=== PATIENT | female | born 1945 | race Caucasian/White ===

== ENCOUNTER 2018-07-31 12:33 | Outpatient (CLI) | payer MEDICARE ==
[~2018-07-31] VITALS: Ht 165.1 cm; Wt 72.6 kg
[~2018-07-31 12:33] MED LIST: ALLERGY SHOT; HYDR118S10 PO; METH25VI IJ; ONDA-42 SL; PROC10TA23 PO; PROM25SU10 PR; ROSU10TA12 PO; SULFASALAZINE PO; TRAZ-189 PO
[2018-07-31] MEDS ORDERED: DENOSUMAB 60 MG/1 ML (PROLIA) SQ SCH (12:45)
[2018-07-31 13:10] VITALS: BP 117/93
== END 2018-07-31 13:10 | disposition home or self-care (01) ==
LOC: SDC 12:33
PROVIDERS: ATTEND Family Medicine
DX: M81.0 Age-related osteoporosis without current pathological fracture (principal)
CPT/HCPCS: 96372

== ENCOUNTER → 2018-08-25 | Outpatient (CLI) | payer MEDICARE ==
--- NOTE | 2018-08-25 14:34 | Diagnostic Imaging Report ---
PROCEDURE: US left lower extremity venous. TECHNIQUE: Multiple real-time grayscale images were obtained over the left lower extremity in various projections. Additional duplex Doppler and color Doppler images were also obtained. Date: August 25, 2018. Indication: 73-year-old female, left leg swelling and pain. Comparison: None. Findings: The proximal and mid right superficial femoral veins are compressible. There is lack of compressibility of the distal right superficial femoral vein and right popliteal vein which contained echogenic material and no demonstrated blood flow compatible with sites of occlusive thrombus. Visualized portions of the right deep femoral vein are patent. Impression: 1. Occlusive thrombus in the right distal superficial femoral vein and popliteal vein. Dictated by: Dictated on workstation # [id number]
== END ==
LOC: RAD 13:09
PROVIDERS: ATTEND Family Medicine
DX: I82.411 Acute embolism and thrombosis of right femoral vein (principal); I82.431 Acute embolism and thrombosis of right popliteal vein

== ENCOUNTER → 2018-10-12 | Outpatient (RCR) | payer MEDICARE | END | disposition home or self-care (01) | PROVIDERS: ATTEND Family Medicine | DX: M54.2 Cervicalgia (principal); R51 Headache ==

== ENCOUNTER 2018-11-10 13:26 | Outpatient (RCR) | payer MEDICARE | END 2019-02-08 | disposition home or self-care (01) | LOC: ONC 13:26 | PROVIDERS: ATTEND Internal Medicine Hematology & Oncology | DX: I82.401 Acute embolism and thrombosis of unspecified deep veins of right lower extremity (principal); E78.5 Hyperlipidemia, unspecified; Z86.73 Personal history of transient ischemic attack (TIA), and cerebral infarction without residual deficits; Z79.01 Long term (current) use of anticoagulants; Z79.899 Other long term (current) drug therapy | CPT/HCPCS: 99214 ==

== ENCOUNTER → 2019-02-02 | Outpatient (CLI) | payer MEDICARE ==
[~2019-02-02] VITALS: Ht 165.1 cm; Wt 72.6 kg
[~2019-02-02] MED LIST changes: +DENOSUMAB 60 MG/1 ML (PROLIA) SQ NR
[2019-02-02 13:05] VITALS: BP 126/73
== END ==
LOC: SDC 01-29 12:30
PROVIDERS: ATTEND Family Medicine
DX: M81.0 Age-related osteoporosis without current pathological fracture (principal)
CPT/HCPCS: 96372

== ENCOUNTER → 2019-08-04 | Outpatient (CLI) | payer MEDICARE ==
[~2019-08-04] VITALS: Ht 167 cm; Wt 73.6 kg
[~2019-08-04] MED LIST changes: -DENOSUMAB 60 MG/1 ML (PROLIA) SQ NR; +DENOSUMAB 60 MG/1 ML (PROLIA) SQ ONE; -TRAZ-189 PO; +TRAZ-222 PO
[2019-08-04 12:50] VITALS: BP 139/74
== END ==
LOC: SDC 12:15
PROVIDERS: ATTEND Family Medicine
DX: M81.0 Age-related osteoporosis without current pathological fracture (principal)
CPT/HCPCS: 96372

== ENCOUNTER → 2020-02-02 | Outpatient (CLI) | payer MEDICARE ==
[~2020-02-02] MED LIST changes: -TRAZ-222 PO; +TRZ50T PO
[2020-02-02 12:50] VITALS: BP 141/66
== END ==
LOC: SDC 12:42
PROVIDERS: ATTEND Family Medicine
DX: M81.0 Age-related osteoporosis without current pathological fracture (principal)
CPT/HCPCS: 96372

== ENCOUNTER 2020-06-01 19:54 | Emergency (ER) | payer MEDICARE ==
[~2020-06-01] VITALS: Ht 167 cm; Wt 72.0 kg
[~2020-06-01 19:54] MED LIST changes: -DENOSUMAB 60 MG/1 ML (PROLIA) SQ ONE
[2020-06-01] MEDS ORDERED: LACTATED RINGERS 1,000 ML IV ONE ×2 (20:04→20:53)
[2020-06-01] MEDS ORDERED: ONDANSETRON 4 MG/2 ML (SDV) Z0FRAN IVP ONE (20:15)
[2020-06-01] MEDS ORDERED: SCOPOLAMINE 1.5 MG (TRANSDERM-SCOP) PATCH TD ONE (20:15)
--- NOTE | 2020-06-01 20:18 | ED GI ---
General Stated Complaint: THROWING UP/MIGRANE/INABLITY TO EAT Source of Information: Patient History of Present Illness Date Seen by Provider: Jun 01, 2020 Time Seen by Provider: 20:00 Initial Comments PT ARRIVES VIA POV FROM HOME C/O NAUSEA/VOMITING/DIARRHEA SINCE 030 THIS AM HAS VOMITED X 2, BUT MULTIPLE EPISODES OF DRY HEAVES HAS HAD APPROXIMATELY 5 EPISODES OF DIARRHEA NO ABDOMINAL PAIN OR CHEST PAIN NO FEVER URINATING A NORMAL AMOUNT HAS HAD A LITTLE BIT OF LIQUID TODAY, BUT HAS NOT EATEN C/O DIZZINESS--DOES HAVE HISTORY OF CHRONIC VERTIGO AND NAUSEA NO SICK CONTACTS OR SUSPICIOUS FOODS TAKES NEXIUM FOR GERD SYMPTOMS, AND TOOK 1 TODAY STATES SHE GOT HER SECOND SHINGLES SHOT YESTERDAY AT [facility] ( FIRST ONE WAS 2 MONTHS AGO, AND DID GET A LITTLE BIT SICK FROM IT, BUT NOT BAD TODAY) --THINKS SHE IS SICK FROM THE SHINGLES SHOT ALSO HAD A MIGRAINE YESTERDAY, WENT AWAY, AND THEN CAME BACK TODAY--TOOK A [place] SEVERAL HOURS AGO, AND IT HELPED FOR A LITTLE WHILE. BUT NOW HEADACHE IS BACK--IS TYPICAL OF HER USUAL MIGRAINES PCP: DR. SALES Allergies and Home Medications Allergies Coded Allergies: ciprofloxacin (Verified Allergy, Intermediate, 09/16/13) Home Medications Meclizine HCl 25 Mg Tablet, 50 MG PO Q6 PRN for DIZZINESS Prescribed by: RADHA PATEL on 06/01/202112 Nitrofurantoin Monohyd/M-Cryst 100 Mg Capsule, 1 TAB PO BID Prescribed by: RADHA PATEL on 06/01/202116 Ondansetron 4 Mg Tab.rapdis, 4 MG PO Q4H Prescribed by: RADHA PATEL on 06/01/202112 Prochlorperazine Maleate 25 Mg Supp.rect, 25 MG RC Q6H Prescribed by: RADHA PATEL on 06/01/202112 Rosuvastatin Calcium 10 Mg Tablet, 10 MG PO DAILY, (Reported) Trazodone HCl 50 Mg Tablet, 50 MG PO HS, (Reported) [Sulfasalazine Ec] , 500 MG PO SURJIT, (Reported) Patient Home Medication List Home Medication List Reviewed: Yes Review of Systems Review of Systems Constitutional: No chills, No diaphoresis; dizziness; No fever EENTM: No Symptoms Reported Respiratory: No Symptoms Reported Cardiovascular: No Symptoms Reported Gastrointestinal: See HPI; Denies Abdominal Pain; Diarrhea, Nausea, Poor Appetite, Poor Fluid Intake, Vomiting Genitourinary: No Symptoms Reported Musculoskeletal: no symptoms reported Skin: no symptoms reported Psychiatric/Neurological: See HPI, Headache Endocrine: No Symptoms Reported Hematologic/Lymphatic: No Symptoms Reported Past Cjzspvt-Vuzgpt-Plvrko Hx Past Med/Social Hx: Reviewed and Corrections made Patient Social History Alcohol Use: Denies Use Recreational Drug Use: No Smoking Status: Former Smoker Type Used: Cigarettes Former Smoker, Quit: Jul 15, 1996 Recent Foreign Travel: No Contact w/Someone Who Travel: No Recent Hopitalizations: No Immunizations Up To Date Tetanus Booster (TDap): Unknown Date of Pneumonia Vaccine: Sep 05, 2009 Date of Influenza Vaccine: Jul 06, 2013 Seasonal Allergies Seasonal Allergies: Yes Past Medical History Surgeries: Yes (SEE BELOW) Bladder Surgery, Gallbladder, Hysterectomy, Oophorectomy, Orthopedic Respiratory: No Currently Using CPAP: No Currently Using BIPAP: No Cardiac: Yes High Cholesterol Neurological: Yes Headaches /Migraines, TIA, Vertigo Reproductive Disorders: No Female Reproductive Disorders: Denies 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 Sexually Transmitted Disease: No HIV/AIDS: No Gastrointestinal: Yes (LAST COLONOSCOPY 2015) Gastroesophageal Reflux, Chronic Constipation, Chronic Diarrhea, Polyps, Irritable Bowel Musculoskeletal: Yes (PSORIATIC ARTHRITIS;BILAT KNEE SCOPES; R THUMB TRIGGER FINGER) Osteoporosis, Arthritis HEENT: Yes Cataract Loss of Vision: Bilateral Hearing Impairment: Denies Psychosocial: No Integumentary: Yes (PSORIATIC ARTHRITIS--METHOTREXATE WEEKLY INJECTIONS) Psoriasis Adverse Reaction/Blood Tranf: No (N/A) Family Medical History SOCIAL HISTORY: -RARE ETOH -NO DRUG USE -QUIT SMOKING 2003 PSH: -COLONOSCOPIES/POLYPECTOMIES--LAST ONE 2015 -TONSILLECTOMY -HYSTERECTOMY/BILATERAL SALPINGO-OOPHORECTOMY -CHOLECYSTECTOMY -FACIAL SURGERY -BILATERAL KNEE SCOPES -RIGHT THUMB TRIGGER FINGER -BLADDER SUSPENSION Physical Exam Vital Signs Vital Signs - First Documented 06/01/20 19:58 Temp 37.2 Pulse 96 Resp 20 B/P (MAP) 119/80 (93) Pulse Ox 97 O2 Delivery Room Air Capillary Refill : Height/Weight/BMI Height: 5'5.00" Weight: 160lbs. 0.0oz. 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, no motor/sensory deficits, alert, oriented x 3 Skin: normal color, warm/dry; No rash Progress/Results/Core Measures Results/Orders Lab Results Laboratory Tests Test 06/01/20 20:08 06/01/20 20:33 Range/Units White Blood Count 6.5 4.3-11.0 10^3/uL Red Blood Count 4.36 4.35-5.85 10^6/uL Hemoglobin 14.7 11.5-16.0 G/DL Hematocrit 43 35-52 % Mean Corpuscular Volume 99 80-99 FL Mean Corpuscular Hemoglobin 34 25-34 PG Mean Corpuscular Hemoglobin Concent 34 32-36 G/DL Red Cell Distribution Width 14.0 10.0-14.5 % Platelet Count 169 130-400 10^3/uL Mean Platelet Volume 8.7 7.4-10.4 FL Neutrophils (%) (Auto) 71 42-75 % Lymphocytes (%) (Auto) 15 12-44 % Monocytes (%) (Auto) 13 H 0-12 % Eosinophils (%) (Auto) 1 0-10 % Basophils (%) (Auto) 0 0-10 % Neutrophils # (Auto) 4.6 1.8-7.8 X 10^3 Lymphocytes # (Auto) 1.0 1.0-4.0 X 10^3 Monocytes # (Auto) 0.9 0.0-1.0 X 10^3 Eosinophils # (Auto) 0.0 0.0-0.3 10^3/uL Basophils # (Auto) 0.0 0.0-0.1 10^3/uL Sodium Level 134 L 135-145 MMOL/L Potassium Level 4.0 3.6-5.0 MMOL/L Chloride Level 102 98-107 MMOL/L Carbon Dioxide Level 18 L 21-32 MMOL/L Anion Gap 14 5-14 MMOL/L Blood Urea Nitrogen 10 7-18 MG/DL Creatinine 0.71 0.60-1.30 MG/DL Estimat Glomerular Filtration Rate > 60 BUN/Creatinine Ratio 14 Glucose Level 104 70-105 MG/DL Calcium Level 9.2 8.5-10.1 MG/DL Corrected Calcium 9.0 8.5-10.1 MG/DL Magnesium Level 2.0 1.6-2.4 MG/DL Total Bilirubin 0.9 0.1-1.0 MG/DL Aspartate Amino Transf (AST/SGOT) 23 5-34 U/L Alanine Aminotransferase (ALT/SGPT) 24 0-55 U/L Alkaline Phosphatase 37 L 40-136 U/L Total Protein 7.1 6.4-8.2 GM/DL Albumin 4.2 3.2-4.5 GM/DL Amylase Level 43 25-125 U/L Lipase 27 8-78 U/L Urine Color YELLOW Urine Clarity CLEAR Urine pH 6.0 5-9 Urine Specific [place] 1.015 L 1.016-1.022 Urine Protein NEGATIVE NEGATIVE Urine Glucose (UA) NEGATIVE NEGATIVE Urine Ketones TRACE H NEGATIVE Urine Nitrite POSITIVE H NEGATIVE Urine Bilirubin NEGATIVE NEGATIVE Urine Urobilinogen 0.2 < = 1.0 MG/DL Urine Leukocyte Esterase 1+ H NEGATIVE Urine RBC (Auto) TRACE-I NEGATIVE Urine RBC 0-2 /HPF Urine WBC 10-25 H /HPF Urine Squamous Epithelial Cells 2-5 /HPF Urine Crystals PRESENT H /LPF Urine Amorphous Sediment FEW MARIZA URATES H /LPF Urine Bacteria FEW H /HPF Urine Casts NONE /LPF Urine Mucus NEGATIVE /LPF Urine Culture Indicated YES My Orders Orders - RADHA PATEL DO Ed Iv/Invasive Line Start (06/01/20 20:04) Monitor-Rhythm Ecg Trace Only (06/01/20 20:04) Amylase (06/01/20 20:04) Cbc With Automated Diff (06/01/20 20:04) Comprehensive Metabolic Panel (06/01/20 20:04) Lipase (06/01/20 20:04) Magnesium (06/01/20 20:04) Ua Culture If Indicated (06/01/20 20:04) Ed Iv/Invasive Line Start (06/01/20 20:04) Lactated Ringers (Lr 1000 Ml Iv Solution (06/01/20 20:04) Ondansetron Injection (Zofran Injectio (06/01/20 20:15) Scopolamine Patch (Transderm-Scop Patch) (06/01/20 20:15) Ketorolac Injection (Toradol Injection) (06/01/20 20:45) Prochlorperazine Injection (Compazine In (06/01/20 20:45) Ed Iv/Invasive Line Start (06/01/20 20:53) Lactated Ringers (Lr 1000 Ml Iv Solution (06/01/20 20:53) Urine Culture (06/01/20 20:33) Medications Given in ED Current Medications Medications Dose Ordered Sig/Lauren Route Start Time Stop Time Status Last Admin Dose Admin Ketorolac Tromethamine 30 mg ONCE ONCE IVP 06/01/20 20:45 06/01/20 20:46 DC 06/01/20 20:41 30 MG Lactated Ringer's 1,000 ml @ 0 mls/hr Q0M ONCE IV 06/01/20 20:04 06/01/20 20:06 DC 06/01/20 20:09 0 MLS/HR Lactated Ringer's 1,000 ml @ 0 mls/hr Q0M ONCE IV 06/01/20 20:53 06/01/20 20:54 DC 06/01/20 20:59 1,000 MLS/HR Ondansetron HCl 4 mg ONCE ONCE IVP 06/01/20 20:15 06/01/20 20:16 DC 06/01/20 20:10 4 MG Prochlorperazine Edisylate 10 mg ONCE ONCE IV 06/01/20 20:45 06/01/20 20:46 DC 06/01/20 20:45 10 MG Scopolamine 1.5 mg ONCE ONCE TD 06/01/20 20:15 06/01/20 20:16 DC 06/01/20 20:23 1.5 MG Vital Signs/I&O 06/01/20 06/01/20 06/01/20 19:58 21:06 21:37 Temp 37.2 37.2 Pulse 96 93 93 Resp 20 20 20 B/P (MAP) 119/80 (93) 155/76 (102) 155/76 (102) Pulse Ox 97 96 96 O2 Delivery Room Air Room Air Room Air 06/02/20 00:00 Intake Total 1500 ml Balance 1500 ml Progress Progress Note : Progress Note GIVEN IV FLUIDS, ZOFRAN AND SCOPOLAMINE PATCH, ALONG WITH COMPAZINE AND TORADOL 2108--PT STATES HER HEADACHE IS GONE, AND JUST WANTS TO GO HOME NOW. NO VOMITING OR DIARRHEA DURING ER STAY. Departure Impression Primary Impression: Nausea vomiting and diarrhea Additional Impressions: Chronic headaches Urinary tract infection Disposition: HOME, SELF-CARE Condition: Improved Departure-Patient Inst. Referrals: CLAUDIA SALES MD (PCP/Family) Primary Care Physician Patient Instructions: Viral Gastroenteritis, Adult (DC), Migraines (DC), Urinary Tract Infection, Adult (DC) Add. Discharge Instructions: CLEAR LIQUIDS--WATER, BROTH, JELLO, GATORADE WHEN YOUR NAUSEA IS BETTER, ADD BRATS DIET TO CLEAR LIQUIDS--BANANAS, RICE, APPLESAUCE, TOAST, SALTINES LEAVE SCOPOLAMINE PATCH ON FOR 3 DAYS FOLLOW UP WITH YOUR DR TOMORROW IF NO BETTER Scripts Nitrofurantoin Monohyd/M-Cryst (Macrobid 100 mg Capsule) 100 Mg Capsule 1 TAB PO BID, #20 CAP Prov: RADHA PATEL DO 06/01/20 Prochlorperazine Maleate (Compazine) 25 Mg Supp.rect 25 MG RC Q6H for Nausea/Vomiting, #10 SUPP.RECT Prov: RADHA PATEL DO 06/01/20 Meclizine HCl (Meclizine HCl) 25 Mg Tablet 50 MG PO Q6 PRN for DIZZINESS, #15 TAB Prov: RADHA PATEL K DO 06/01/20 Ondansetron (Ondansetron Odt) 4 Mg Tab.rapdis 4 MG PO Q4H for Nausea/Vomiting, #10 TAB Prov: JORGERADHA K DO 06/01/20 MITCH PATELA K DO Jun 01, 2020 20:18
[2020-06-01 20:33] LABS: BASOPHILS % (AUTO) 0 % (0-10); EOSINOPHILS % (AUTO) 1 % (0-10); HEMATOCRIT 43 % (35-52); HEMOGLOBIN 14.7 G/DL (11.5-16.0); LYMPHOCYTES % (AUTO) 15 % (12-44); MEAN CORPUSCULAR HEMOGLOBIN 34 PG (25-34); MEAN CORPUSCULAR HGB CONC 34 G/DL (32-36); MEAN CORPUSCULAR VOLUME 99 FL (80-99); MEAN PLATELET VOLUME 8.7 FL (7.4-10.4); MONOCYTES # (AUTO) 0.9 X 10^3 (0.0-1.0); MONOCYTES % (AUTO) 13 % (0-12); NEUTROPHILS # (AUTO) 4.6 X 10^3 (1.8-7.8); NEUTROPHILS % (AUTO) 71 % (42-75); PLATELET COUNT 169 10^3/uL (130-400); WHITE BLOOD COUNT 6.5 10^3/uL (4.3-11.0)
--- NOTE | 2020-06-01 20:33 | NUR ---
Pt arrives appearing very anxious reporting n/v/d with the onset around 0300 this morning. She reports that she thinks her s/s are from a Shingles injection she received yesterday. Pt has a hx of migraines and is also c/o migraine with pain rated 10/10. Pt states she took an Imitrex which hasn't helped. Pt states she has multiple migraines a month and this is not abnormal for her. IV started and labs drawn; ice gaurav provided for head. Pt c/o pain to right upper arm where she states she received the injection yesterday- no signs of swelling or redness noted- ice gaurav provided to this area as well. Lights dimmed for patient comfort. Call light within reach. Will continue to monitor.
[2020-06-01 20:38] LABS: ALBUMIN 4.2 GM/DL (3.2-4.5); CHLORIDE 102 MMOL/L (98-107); SODIUM 134 MMOL/L (135-145)
[2020-06-01 20:39] LABS: CALCIUM 9.2 MG/DL (8.5-10.1)
[2020-06-01 20:40] LABS: AMYLASE 43 U/L (25-125); GLUCOSE 104 MG/DL (70-105)
[2020-06-01 20:41] LABS: TOTAL PROTEIN 7.1 GM/DL (6.4-8.2)
[2020-06-01 20:42] LABS: BILIRUBIN,TOTAL 0.9 MG/DL (0.1-1.0); CARBON DIOXIDE 18 MMOL/L (21-32)
[2020-06-01 20:44] LABS: ALKALINE PHOSPHATASE 37 U/L (40-136); CREATININE SERUM 0.71 MG/DL (0.60-1.30); GFR ESTIMATED > 60
[2020-06-01 20:45] LABS: BUN/CREATININE RATIO 14
[2020-06-01] MEDS ORDERED: PROCHLORPERAZINE 10 MG/2ML INJ (COMPAZINE) IV ONE (20:45)
[2020-06-01] MEDS ORDERED: KETOROLAC 30 MG/ML VIAL IVP ONE (20:45)
[2020-06-01 20:47] LABS: ALANINE AMINOTRANSFERASE 24 U/L (0-55)
[2020-06-01 20:49] LABS: LIPASE 27 U/L (8-78)
[2020-06-01 21:01] LABS: BILIRUBIN,URINE NEGATIVE (NEGATIVE); CLARITY,URINE CLEAR; COLOR,URINE YELLOW; GLUCOSE, URINE (UA) NEGATIVE (NEGATIVE); KETONES,URINE TRACE (NEGATIVE); LEUKOCYTE ESTERASE ,URINE 1+ (NEGATIVE); NITRITE,URINE POSITIVE (NEGATIVE); PROTEIN,URINE NEGATIVE (NEGATIVE)
--- NOTE | 2020-06-01 21:01 | NUR ---
Pt resting; pt up to the [facility] without incident. Call light within reach.
[2020-06-01 21:06] VITALS: BP 155/76
[2020-06-01 21:13] LABS: BACTERIA,URINE FEW /HPF; RBC,URINE 0-2 /HPF
[2020-06-01] MEDS ORDERED: MECL-149 PO (21:13)
[2020-06-01] MEDS ORDERED: PROC25SU27 RC (21:13)
[2020-06-01] MEDS ORDERED: ONDA4TAB11 PO (21:13)
[2020-06-01 21:14] LABS: AMORPHOUS SEDIMENT,UR FEW AMOR URATES /LPF
--- NOTE | 2020-06-01 21:15 | NUR ---
Pt reports that she is feeling better and is ready to go home; last liter of LR is not infused but pt states she is ready to go home; ERP notified.
[2020-06-01] MEDS ORDERED: NITR-65 PO (21:17)
[2020-06-01 21:37] VITALS: BP 155/76
== END 2020-06-01 21:34 | disposition home or self-care (01) ==
LOC: EDUNIT# 19:54 → ER 19:56
DX: R19.7 Diarrhea, unspecified (principal); R51 Headache; N39.0 Urinary tract infection, site not specified; E78.00 Pure hypercholesterolemia, unspecified; K58.1 Irritable bowel syndrome with constipation; K58.0 Irritable bowel syndrome with diarrhea; Z88.1 Allergy status to other antibiotic agents; Z87.891 Personal history of nicotine dependence; Z86.73 Personal history of transient ischemic attack (TIA), and cerebral infarction without residual deficits; Z86.69 Personal history of other diseases of the nervous system and sense organs
CPT/HCPCS: 36415; 80053; 81000; 82150; 83690; 83735; 85025; 87077; 87088; 87186; 93041

== ENCOUNTER 2020-08-01 12:29 | Outpatient (CLI) | payer MEDICARE ==
[~2020-08-01 12:29] MED LIST changes: +MECL-149 PO; +NITR-65 PO; +ONDA4TAB11 PO; +PROC25SU27 RC
[2020-08-01 12:45] VITALS: BP 152/80
[2020-08-01] MEDS ORDERED: DENOSUMAB 60 MG/1 ML (PROLIA) SQ ONE (12:45)
== END 2020-08-01 13:00 | disposition home or self-care (01) ==
LOC: SDC 12:29
PROVIDERS: ATTEND Family Medicine
DX: M81.0 Age-related osteoporosis without current pathological fracture (principal)
CPT/HCPCS: 96372

== ENCOUNTER 2021-01-30 10:14 | Outpatient (CLI) | payer MEDICARE ==
[2021-01-30 11:00] VITALS: BP 128/72
[2021-01-30] MEDS ORDERED: DENOSUMAB 60 MG/1 ML (PROLIA) SQ SCH (11:00)
== END 2021-01-30 11:00 | disposition home or self-care (01) ==
LOC: SDC 10:14
PROVIDERS: ATTEND Family Medicine
DX: M81.0 Age-related osteoporosis without current pathological fracture (principal)
CPT/HCPCS: 96372

== ENCOUNTER 2021-05-02 12:15 | Observation (INO) | payer MEDICARE ==
[~2021-05-02] VITALS: Ht 165.1 cm; Wt 68.0 kg
--- NOTE | 2021-05-02 13:25 | Diagnostic Imaging Report ---
INDICATION: Constipation for 4 days. TIME OF EXAM: 1:03 PM. FINDINGS: No free air is identified. There are surgical clips in the gallbladder fossa. Multiple clips are identified in the right abdomen. The bowel gas pattern is nonobstructed. There is moderate stool in the right colon as well as in the rectum. No pathologic calcifications are seen. IMPRESSION: Moderate stool in the rectum and right colon. The study is otherwise unremarkable. Dictated by: Dictated on workstation # [id number]
[2021-05-02] MEDS ORDERED: LIDOCAINE 2% VISCOUS 15 ML UDC PO ONE (14:15)
[2021-05-02] MEDS ORDERED: KETOROLAC 30 MG/ML VIAL IVP ONE (14:15)
[2021-05-02] MEDS ORDERED: fentaNYL INJ 100 MCG/2 ML AMP IVP ONE (14:15)
[2021-05-02] MEDS ORDERED: LACTATED RINGERS 1,000 ML IV ONE (14:15)
[2021-05-02 14:27] LABS: BASOPHILS # (AUTO) 0.1 10^3/uL (0.0-0.1); BASOPHILS % (AUTO) 0 % (0-10); EOSINOPHILS % (AUTO) 0 % (0-10); HEMATOCRIT 42 % (35-52); HEMOGLOBIN 14.5 g/dL (11.5-16.0); LYMPHOCYTES # (AUTO) 2.3 10^3/uL (1.0-4.0); LYMPHOCYTES % (AUTO) 17 % (12-44); MEAN CORPUSCULAR HEMOGLOBIN 35 pg (25-34); MEAN CORPUSCULAR HGB CONC 34 g/dL (32-36); MEAN CORPUSCULAR VOLUME 102 fL (80-99); MEAN PLATELET VOLUME 8.6 fL (9.0-12.2); MONOCYTES # (AUTO) 0.8 10^3/uL (0.0-1.0); MONOCYTES % (AUTO) 6 % (0-12); NEUTROPHILS # (AUTO) 10.3 10^3/uL (1.8-7.8); NEUTROPHILS % (AUTO) 76 % (42-75); PLATELET COUNT 244 10^3/uL (130-400); WHITE BLOOD COUNT 13.5 10^3/uL (4.3-11.0)
[2021-05-02 14:50] LABS: MAGNESIUM 1.8 MG/DL (1.6-2.4)
[2021-05-02 14:56] LABS: CREATININE SERUM 0.67 MG/DL (0.60-1.30)
[2021-05-02 15:00] LABS: POTASSIUM 3.5 MMOL/L (3.6-5.0)
[2021-05-02 15:01] LABS: ALBUMIN 4.1 GM/DL (3.2-4.5); BILIRUBIN,TOTAL 0.6 MG/DL (0.1-1.0); CALCIUM 9.4 MG/DL (8.5-10.1); TOTAL PROTEIN 6.8 GM/DL (6.4-8.2)
[2021-05-02 15:02] LABS: BILIRUBIN,URINE NEGATIVE (NEGATIVE); CLARITY,URINE SL CLOUDY; COLOR,URINE YELLOW; GLUCOSE, URINE (UA) NEGATIVE (NEGATIVE); KETONES,URINE NEGATIVE (NEGATIVE); LEUKOCYTE ESTERASE ,URINE NEGATIVE (NEGATIVE); NITRITE,URINE POSITIVE (NEGATIVE); PROTEIN,URINE NEGATIVE (NEGATIVE)
[2021-05-02 15:08] LABS: BACTERIA,URINE MODERATE /HPF; WBC,URINE 0-2 /HPF
[2021-05-02 15:09] LABS: SQUAMOUS EPITHELIAL CELL,UR RARE /HPF
[2021-05-02] MEDS ORDERED: CATHETER FLUSH 10 ML SYR IV PRN (15:15)
[2021-05-02] MEDS ORDERED: HOLD METFORMIN - RECEIVED CONTRAST 20 ML VIAL IV SCH (15:15)
[2021-05-02] MEDS ORDERED: IOHEXOL 350 MG/ML 100 ML (OMNIPAQUE 350) VIAL IV ONE (15:15)
[2021-05-02] MEDS ORDERED: NS 100 ML (IVPB) BAG IV ONE (15:15)
--- NOTE | 2021-05-02 15:44 | Diagnostic Imaging Report ---
PROCEDURE: CT abdomen and pelvis with contrast. TECHNIQUE: Multiple contiguous axial images were obtained through the abdomen and pelvis after administration of intravenous contrast. Auto Exposure Controls were utilized during the CT exam to meet ALARA standards for radiation dose reduction. All CT scans use one or more of the following dose optimizing techniques: automated exposure control, MA and/or KvP adjustment based on patient size and exam type or iterative reconstruction. INDICATION: Constipation, elevated white blood cell count. FINDINGS: The liver density mildly diminished, consistent with at least mild hepatic steatosis. No intra-extra hepatic bile duct dilatation in this patient postcholecystectomy. No radiopaque biliary calculi. There is no evidence for liver mass. The spleen normal in size and nonfocal. The adrenals and pancreas negative. The kidneys are unobstructed. The stomach nondistended. There is no small bowel dilatation. There is an elevated colonic fecal load throughout the length of the large bowel consistent with pancolonic constipation. Stool distends to the rectal vault 7.8 cm, the rectal wall non-thickened and no perirectal edema. No pneumatosis. No free air, The air-containing appendix is visualized and normal. No diverticulitis. IMPRESSION: Colorectal constipation, mild impaction of the rectal vault not excluded. No bowel wall thickening, pericolonic or perienteric edema. Normal appendix. Unobstructed urinary tracts. Probable mild hepatic steatosis. Dictated by: Dictated on workstation # [id number]
[2021-05-02] MEDS ORDERED: ONDANSETRON 4 MG/2 ML (SDV) Z0FRAN ONE (16:18)
[2021-05-02] MEDS ORDERED: ONDANSETRON 4 MG/2 ML (SDV) Z0FRAN IVP ONE (16:30)
[2021-05-02] MEDS ORDERED: fentaNYL INJ 100 MCG/2 ML AMP IVP PRN (16:30)
--- NOTE | 2021-05-02 16:33 | HISTORY AND PHYSICAL ---
DATE OF SERVICE: ATTENDING PRIMARY CARE PHYSICIAN: Blanca Marshall MD. HISTORY OF PRESENT ILLNESS: The patient is a 75-year-old female with history of psoriatic arthritis and does take sulfasalazine as well as methotrexate for this. Due to this, she has suffered with issues with constipation for some time. She states that her last bowel movement was four days ago, and she did have oral surgery recently and was on narcotic pain medication for this. At home, she has tried 3 Fleet enemas without any relief. A CT scan was performed, which did show a large impacted stool within the rectum. She does have abdominal discomfort; however, no peritoneal signs. PAST MEDICAL HISTORY: Psoriatic arthritis, hypercholesterolemia, chronic urinary tract infection. PAST SURGICAL HISTORY: None known at this time. ALLERGIES: CIPROFLOXACIN. MEDICATIONS: Meclizine 50 mg q.6 hours p.r.n., Compazine 25 mg rectal suppository p.r.n., Nitrofurantoin 100 mg b.i.d., sulfasalazine 500 mg daily, Rosuvastatin 10 mg daily, hydrocodone 7.5/325 q.4 hours p.r.n., methotrexate 25 mg injection weekly, trazodone 50 mg each day at bedtime. SOCIAL HISTORY: Negative smoke, negative alcohol. FAMILY HISTORY: Noncontributory. VITAL SIGNS: Temperature 36.5, blood pressure 132/59, pulse 122, respirations 21. REVIEW OF SYSTEMS: A well-nourished female, currently in no acute distress. She is not experiencing any shortness of breath or difficulty breathing. No chest pain, palpitations, diaphoresis. Intermittent episodes of nausea, especially in the past 4 days, obstipation for the past four days. No red blood per rectum, no dark tarry stools. No fever, chills, no recent inadvertent weight loss. All other review of systems negative. PHYSICAL EXAMINATION: CHEST: Clear. Good breath sounds bilaterally. HEART: Regular, no murmurs. EXTREMITIES: No lower extremity edema, negative Homans sign. HEENT: No scleral icterus. NECK: No cervical lymphadenopathy. ABDOMEN: Soft with slight distention in the lower abdominal quadrants with mild discomfort upon deep palpation. No peritoneal signs. SKIN: Warm, dry. LABORATORY DATA: WBC 13.5, hemoglobin 14.5, hematocrit 42, platelets 244. BUN 9, creatinine 0.67. Liver function enzymes are normal. Urine is positive for nitrite with moderate amounts of bacteria. ASSESSMENT AND PLAN: A 75-year-old female with fecal impaction. We will proceed with an anal exam under anesthesia in lithotomy position as well as evacuation of impacted stools. Job ID: [id number] DocumentID: [id number] Dictated Date: 05/02/2021 16:17:55 Real Estate Account Executive Date: 05/02/2021 16:32:49 Dictated By: SUZIE PEGUERO MD
[2021-05-02] MEDS ORDERED: cefTRIAXone 1,000 MG in WATER (STERILE) FOR INJECTION 10 ML IV ONE (17:15)
--- NOTE | 2021-05-02 17:24 | ED Abdominal Pain ---
General Chief Complaint: Abdominal/GI Problems Stated Complaint: CONSTIPATION Nursing Triage Note: PT AMBULATE TO ROOM 02 WITH C/O CONSTIPATION. PT REPORTS LAST BM X4 DAYS AGO. PT REPORTS TAKING PAIN MEDS FOR AN ORAL SURGERY. PT REPORTS X3 FLEET ENEMA AND HAS SAT IN HER WHIRLPOOL WITHOUT RELIEF. Source of Information: Patient Exam Limitations: No Limitations History of Present Illness Date Seen by Provider: May 02, 2021 Time Seen by Provider: 12:29 Initial Comments Patient reports no bowel movement in 4 days. She is now in distress due to pain in the rectal area. She took 3 suppositories without relief. There was miscommunication with nursing staff regarding the comments above; these treatments were suppositories not enemas. Patient has been taking opioid pain medications for a recent oral surgery which may have induced the constipation. She is also nauseated. She reports history of significant hemorrhoids and she is having notable pain in the rectal area. She sat on the stool for 5 hours today without being able to produce a bowel movement. Allergies and Home Medications Allergies Coded Allergies: ciprofloxacin (Verified Allergy, Intermediate, 09/16/13) Home Medications Meclizine HCl 25 Mg Tablet, 50 MG PO Q6 PRN for DIZZINESS Prescribed by: RADHA PATEL on 06/01/202112 Nitrofurantoin Monohyd/M-Cryst 100 Mg Capsule, 1 TAB PO BID Prescribed by: RADHA PATEL on 06/01/202116 Ondansetron 4 Mg Tab.rapdis, 4 MG PO Q4H Prescribed by: RADHA PATEL on 06/01/202112 Prochlorperazine Maleate 25 Mg Supp.rect, 25 MG RC Q6H Prescribed by: RADHA PATEL on 06/01/202112 Rosuvastatin Calcium 10 Mg Tablet, 10 MG PO DAILY, (Reported) Trazodone HCl 50 Mg Tablet, 50 MG PO HS, (Reported) [Sulfasalazine Ec] , 500 MG PO SURJIT, (Reported) Patient Home Medication List Home Medication List Reviewed: Yes Review of Systems Review of Systems Constitutional: no symptoms reported EENTM: See HPI Respiratory: No Symptoms Reported Cardiovascular: No Symptoms Reported Gastrointestinal: See HPI Genitourinary: No Symptoms Reported Musculoskeletal: no symptoms reported Skin: no symptoms reported Psychiatric/Neurological: No Symptoms Reported Endocrine: No Symptoms Reported Hematologic/Lymphatic: No Symptoms Reported Past Ucbadzd-Cfgqhg-Xzdbgy Hx Patient Social History Tobacco Use?: No Smoking Status: Never a Smoker Substance use?: No Alcohol Use?: No Pt feels they are or have been: No Immunizations Up To Date Tetanus Booster (TDap): Unknown First/Initial COVID19 Vaccinat: 10/2020 Second COVID19 Vaccination Jay: 11/2020 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: [employer] Seasonal Allergies Seasonal Allergies: Yes Past Medical History Surgeries: Yes (SEE BELOW, oral) Bladder Surgery, Gallbladder, Hysterectomy, Oophorectomy, Orthopedic Respiratory: No Currently Using CPAP: No Currently Using BIPAP: No Cardiac: Yes High Cholesterol Neurological: Yes Headaches /Migraines, TIA, Vertigo Reproductive Disorders: No Female Reproductive Disorders: Denies 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 Sexually Transmitted Disease: No HIV/AIDS: No Gastrointestinal: Yes (LAST COLONOSCOPY 2015) Gastroesophageal Reflux, Chronic Constipation, Chronic Diarrhea, Polyps, Irritable Bowel Musculoskeletal: Yes (PSORIATIC ARTHRITIS;BILAT KNEE SCOPES; R THUMB TRIGGER FINGER) Osteoporosis, Arthritis Endocrine: No HEENT: Yes Cataract Loss of Vision: Bilateral Hearing Impairment: Denies Cancer: No Psychosocial: No Integumentary: Yes (PSORIATIC ARTHRITIS--METHOTREXATE WEEKLY INJECTIONS) Psoriasis Blood Disorders: No Adverse Reaction/Blood Tranf: No (N/A) Family Medical History SOCIAL HISTORY: -RARE ETOH -NO DRUG USE -QUIT SMOKING 2003 PSH: -COLONOSCOPIES/POLYPECTOMIES--LAST ONE 2015 -TONSILLECTOMY -HYSTERECTOMY/BILATERAL SALPINGO-OOPHORECTOMY -CHOLECYSTECTOMY -FACIAL SURGERY -BILATERAL KNEE SCOPES -RIGHT THUMB TRIGGER FINGER -BLADDER SUSPENSION Physical Exam Vital Signs Vital Signs - First Documented 05/02/21 12:37 Temp 36.5 Pulse 122 Resp 21 B/P (MAP) 132/59 (83) O2 Delivery Room Air Capillary Refill : Less Than 3 Seconds Height/Weight/BMI Height: 5'5.00" Weight: 160lbs. 0.0oz. [id number]; 24.00 BMI Method: General Appearance: WD/WN, moderate distress HEENT: normal ENT inspection Neck: normal inspection Respiratory: lungs clear, normal breath sounds, no respiratory distress Cardiovascular: regular rate, rhythm, no edema, no murmur Gastrointestinal: normal bowel sounds, soft, tenderness (Mild, generalized) Extremities: normal inspection, no pedal edema Neurologic/Psychiatric: oil heaterman II-XII nml as tested, no motor/sensory deficits, alert, oriented x 3, other (Anxious, distressed) Skin: normal color, warm/dry Progress/Results/Core Measures Results/Orders Lab Results Laboratory Tests Test 05/02/21 14:20 05/02/21 14:56 Range/Units White Blood Count 13.5 H 4.3-11.0 10^3/uL Red Blood Count 4.14 3.80-5.11 10^6/uL Hemoglobin 14.5 11.5-16.0 g/dL Hematocrit 42 35-52 % Mean Corpuscular Volume 102 H 80-99 fL Mean Corpuscular Hemoglobin 35 H 25-34 pg Mean Corpuscular Hemoglobin Concent 34 32-36 g/dL Red Cell Distribution Width 14.0 10.0-14.5 % Platelet Count 244 130-400 10^3/uL Mean Platelet Volume 8.6 L 9.0-12.2 fL Immature Granulocyte % (Auto) 0 % Neutrophils (%) (Auto) 76 H 42-75 % Lymphocytes (%) (Auto) 17 12-44 % Monocytes (%) (Auto) 6 0-12 % Eosinophils (%) (Auto) 0 0-10 % Basophils (%) (Auto) 0 0-10 % Neutrophils # (Auto) 10.3 H 1.8-7.8 10^3/uL Lymphocytes # (Auto) 2.3 1.0-4.0 10^3/uL Monocytes # (Auto) 0.8 0.0-1.0 10^3/uL Eosinophils # (Auto) 0.0 0.0-0.3 10^3/uL Basophils # (Auto) 0.1 0.0-0.1 10^3/uL Immature Granulocyte # (Auto) 0.1 0.0-0.1 10^3/uL Sodium Level 136 135-145 MMOL/L Potassium Level 3.5 L 3.6-5.0 MMOL/L Chloride Level 100 98-107 MMOL/L Carbon Dioxide Level 22 21-32 MMOL/L Anion Gap 14 5-14 MMOL/L Blood Urea Nitrogen 9 7-18 MG/DL Creatinine 0.67 0.60-1.30 MG/DL Estimat Glomerular Filtration Rate 86 BUN/Creatinine Ratio 13 Glucose Level 113 H 70-105 MG/DL Calcium Level 9.4 8.5-10.1 MG/DL Corrected Calcium 9.3 8.5-10.1 MG/DL Magnesium Level 1.8 1.6-2.4 MG/DL Total Bilirubin 0.6 0.1-1.0 MG/DL Aspartate Amino Transf (AST/SGOT) 21 5-34 U/L Alanine Aminotransferase (ALT/SGPT) 33 0-55 U/L Alkaline Phosphatase 40 40-136 U/L C-Reactive Protein High Sensitivity 0.11 0.00-0.50 MG/DL Total Protein 6.8 6.4-8.2 GM/DL Albumin 4.1 3.2-4.5 GM/DL Lipase 30 8-78 U/L Urine Color YELLOW Urine Clarity SL CLOUDY Urine pH 6.0 5-9 Urine Specific [place] 1.020 1.016-1.022 Urine Protein NEGATIVE NEGATIVE Urine Glucose (UA) NEGATIVE NEGATIVE Urine Ketones NEGATIVE NEGATIVE Urine Nitrite POSITIVE H NEGATIVE Urine Bilirubin NEGATIVE NEGATIVE Urine Urobilinogen 0.2 < = 1.0 MG/DL Urine Leukocyte Esterase NEGATIVE NEGATIVE Urine RBC (Auto) NEGATIVE NEGATIVE Urine RBC NONE /HPF Urine WBC 0-2 /HPF Urine Squamous Epithelial Cells RARE /HPF Urine Crystals NONE /LPF Urine Bacteria MODERATE H /HPF Urine Casts NONE /LPF Urine Mucus SMALL H /LPF Urine Culture Indicated YES My Orders Orders - AUGUSTINE MENDEZ MD Abdomen, Flat & Upright/Decub (05/02/21 12:29) Cbc With Automated Diff (05/02/21 14:04) Hs C Reactive Protein (05/02/21 14:04) Lipase (05/02/21 14:04) Ua Culture If Indicated (05/02/21 14:04) Ed Iv/Invasive Line Start (05/02/21 14:04) Lactated Ringers (Lr 1000 Ml Iv Solution (05/02/21 14:15) Lidocaine 2% Viscous 15 Ml (Xylocaine Vi (05/02/21 14:15) Ketorolac Injection (Toradol Injection) (05/02/21 14:15) Fentanyl Inj (Sublimaze Injection) (05/02/21 14:15) Magnesium (05/02/21 14:06) Comprehensive Metabolic Panel (05/02/21 14:37) Ct Abdomen/Pelvis W (05/02/21 15:06) Iohexol Injection (Omnipaque 350 Mg/Ml 1 (05/02/21 15:15) Received Contrast (Hold Metformin- Contr (05/02/21 15:15) Sodium Chloride Flush (Catheter Flush Sy (05/02/21 15:15) Ns (Ivpb) (Sodium Chloride 0.9% Ivpb Bag (05/02/21 15:15) Urine Culture (05/02/21 14:56) Ondansetron Injection (Zofran Injectio (05/02/21 16:30) Ondansetron Injection (Zofran Injectio (05/02/21 16:18) Ceftriaxone (Rocephin) (05/02/21 17:15) Medications Given in ED Current Medications Medications Dose Ordered Sig/Lauren Route Start Time Stop Time Status Last Admin Dose Admin Ceftriaxone Sodium 1000 mg/ Sterile Water 10 ml @ 200 mls/hr ONCE ONCE IV 05/02/21 17:15 05/02/21 17:17 DC 05/02/21 17:22 200 MLS/HR Fentanyl Citrate 50 mcg ONCE ONCE IVP 05/02/21 14:15 05/02/21 14:16 DC 05/02/21 14:14 50 MCG Fentanyl Citrate 50 mcg Q1H PRN IVP 05/02/21 16:30 05/02/21 18:35 DC 05/02/21 16:27 50 MCG Iohexol 100 ml ONCE ONCE IV 05/02/21 15:15 05/02/21 15:16 DC 05/02/21 15:29 85 ML Ketorolac Tromethamine 15 mg ONCE ONCE IVP 05/02/21 14:15 05/02/21 14:16 DC 05/02/21 14:15 15 MG Lactated Ringer's 1,000 ml @ 0 mls/hr Q0M ONCE IV 05/02/21 14:15 05/02/21 14:16 DC 05/02/21 14:15 999 MLS/HR Lidocaine HCl 5 ml ONCE ONCE PO 05/02/21 14:15 05/02/21 14:16 DC 05/02/21 14:22 5 ML Ondansetron HCl 8 mg ONCE ONCE IVP 05/02/21 16:30 05/02/21 16:31 DC 05/02/21 16:22 8 MG Sodium Chloride 10 ml NEEDED PRN IV 05/02/21 15:15 05/02/21 15:29 10 ML Sodium Chloride 100 ml ONCE ONCE IV 05/02/21 15:15 05/02/21 15:16 DC 05/02/21 15:29 80 ML Vital Signs/I&O 05/02/21 12:37 Temp 36.5 Pulse 122 Resp 21 B/P (MAP) 132/59 (83) O2 Delivery Room Air Blood Pressure Mean: 83 Progress Progress Note : Time: 19:44 Progress Note KUB and upright x-ray showed no evidence of obstruction. There was however fecal impaction noted. After noting the significant pain the patient was in, labs were ordered to help differentiate if any other pathology is present such as infection. Digital rectal exam was performed with a female staff janitorial services supervisor. Moderate sized hemorrhoids were noted. The fecal impaction could be reached with my index finger but could not be well manipulated. Despite being pretreated with fentanyl, Toradol, and viscous lidocaine jelly, patient could not tolerate even the presence of my finger in the rectal vault. Effort at disimpaction was abandoned. I discussed the case with Dr. Alvarado who recommended admission for manual disimpaction under anesthesia tomorrow. Patient expressed a desire to try to pass her stool with a conservative approach. Therefore MiraLAX and enemas were ordered in an attempt to clear the constipation before needing to perform sedation. Urinary tract infection was identified and treated with Rocephin. Zofran had been given for nausea. CT was obtained after leukocytosis was noted, but no other serious pathology was identified. Diagnostic Imaging Diagonstic Imaging: Xray Plain Films/CT/US/NM/MRI: abdomen, pelvis Comments KUB and upright x-rays viewed by me and report reviewed. See report below: NAME: JAMIE MUNGUIA MED REC#: [id number] PT STATUS: REG ER : 1945 PHYSICIAN: AUGUSTINE MENDEZ MD ADMIT DATE: 05/02/21/ER Signed Date of Exam:05/02/21 ABDOMEN, FLAT & UPRIGHT/DECUB INDICATION: Constipation for 4 days. TIME OF EXAM: 1:03 PM. FINDINGS: No free air is identified. There are surgical clips in the gallbladder fossa. Multiple clips are identified in the right abdomen. The bowel gas pattern is nonobstructed. There is moderate stool in the right colon as well as in the rectum. No pathologic calcifications are seen. IMPRESSION: Moderate stool in the rectum and right colon. The study is otherwise unremarkable. Dictated by: Dictated on workstation # [id number] Dict: 05/02/21 1321 Trans: 05/02/21 1646 [id number] Interpreted by: CITLALI SARGENT MD Electronically signed by: CITLALI SARGENT MD 05/02/21 1646 Diagonstic Imaging: CT Plain Films/CT/US/NM/MRI: abdomen, pelvis Comments CT abdomen pelvis viewed by me and report reviewed. See report below: NAME: JAMIE MUNGUIA [facility] REC#: [id number] PT STATUS: REG ER : 1945 PHYSICIAN: AUGUSTINE MENDEZ MD ADMIT DATE: 05/02/21/ER Signed Date of Exam:05/02/21 CT ABDOMEN/PELVIS W PROCEDURE: CT abdomen and pelvis with contrast. TECHNIQUE: Multiple contiguous axial images were obtained through the abdomen and pelvis after administration of intravenous contrast. Auto Exposure Controls were utilized during the CT exam to meet ALARA standards for radiation dose reduction. All CT scans use one or more of the following dose optimizing techniques: automated exposure control, MA and/or KvP adjustment based on patient size and exam type or iterative reconstruction. INDICATION: Constipation, elevated white blood cell count. FINDINGS: The liver density mildly diminished, consistent with at least mild hepatic steatosis. No intra-extra hepatic bile duct dilatation in this patient postcholecystectomy. No radiopaque biliary calculi. There is no evidence for liver mass. The spleen normal in size and nonfocal. The adrenals and pancreas negative. The kidneys are unobstructed. The stomach nondistended. There is no small bowel dilatation. There is an elevated colonic fecal load throughout the length of the large bowel consistent with pancolonic constipation. Stool distends to the rectal vault 7.8 cm, the rectal wall non-thickened and no perirectal edema. No pneumatosis. No free air, The air-containing appendix is visualized and normal. No diverticulitis. IMPRESSION: Colorectal constipation, mild impaction of the rectal vault not excluded. No bowel wall thickening, pericolonic or perienteric edema. Normal appendix. Unobstructed urinary tracts. Probable mild hepatic steatosis. Dictated by: Dictated on workstation # [id number] Dict: 05/02/21 1537 Trans: 05/02/21 1638 CV [id number] Interpreted by: GABI GARCES Electronically signed by: GABI GARCES 05/02/21 1638 Departure Communication (Admissions) Time/Spoke to Admitting Phy: 17:00 Dr. Alvarado Impression Primary Impression: Fecal impaction Additional Impressions: Constipation Qualified Codes: K59.00 - Constipation, unspecified Abdominal pain Qualified Codes: R10.84 - Generalized abdominal pain Nausea Urinary tract infection Qualified Codes: N39.0 - Urinary tract infection, site not specified Disposition: ADMITTED INPATIENT Condition: Improved Admissions Decision to Admit Reason: Admit from ER (General) Decision to Admit/Date: May 02, 2021 Time/Decision to Admit Time: 17:00 Departure-Patient Inst. Referrals: CLAUDIA SALES MD (PCP/Family) Primary Care Physician Copy Copies To 1: CLAUDIA SALES MD, JOSHUA T MD May 02, 2021 17:24
[2021-05-02 17:45] VITALS: BP 132/75
[2021-05-02] MEDS ORDERED: polyethylene glycoL POWDER 17 GM (MIRALAX) PACK PO SCH (18:30)
[2021-05-02] MEDS ORDERED: FLEET ENEMA ADULT 1 EA BTL PR SCH (18:30)
--- NOTE | 2021-05-02 18:36 | Progress Note-Pre Operative ---
Pre-Operative Progress Note H&P Reviewed The H&P was reviewed, patient examined and no changes noted. Date Seen by Provider: May 02, 2021 Time Seen by Provider: 18:30 Date H&P Reviewed: May 02, 2021 Time H&P Reviewed: 18:30 Pre-Operative Diagnosis: fecal impaction rectal vault SUZIE PEGUERO MD May 02, 2021 18:36
[2021-05-02] MEDS ORDERED: fentaNYL INJ 100 MCG/2 ML AMP IV PRN (18:45)
[2021-05-02] MEDS ORDERED: LACTATED RINGERS 1,000 ML IV SCH (18:45)
[2021-05-02] MEDS ORDERED: ONDANSETRON 4 MG/2 ML (SDV) Z0FRAN IV PRN (18:45)
[2021-05-02 19:49] VITALS: BP 137/85
[2021-05-02] MEDS ORDERED: FAMOTIDINE 20MG/2ML IV (PEPCID) IV SCH (21:00)
[2021-05-03] MEDS ORDERED: cefTRIAXone 1,000 MG/SWFI 10 ML IV PUSH IV SCH ×2 (17:00)
--- NOTE | 2021-05-04 13:40 | Physician Query-Final Dx ---
ARMAND LOYOLA 05/04/21 1340: Final Diagnosis Give Final Diagnosis Please give Final Diagnosis SUZIE PEGUERO MD 05/04/21 1416: Final Diagnosis Give Final Diagnosis rectal fecal impaction ARMAND LOYOLA May 04, 2021 13:40 SUZIE PEGUERO MD May 04, 2021 14:16
== END 2021-05-02 19:45 | disposition home or self-care (01) ==
LOC: EDUNIT# 12:15 → ER 12:16 → UNDOADMOB 17:22 → 4TH 17:22 → UNDODISOB 19:45
PROVIDERS: ADMIT Surgery; ATTEND Surgery
DX: K59.09 Other constipation (principal); E78.00 Pure hypercholesterolemia, unspecified; N39.0 Urinary tract infection, site not specified; L40.50 Arthropathic psoriasis, unspecified; G43.909 Migraine, unspecified, not intractable, without status migrainosus; K21.9 Gastro-esophageal reflux disease without esophagitis; K58.9 Irritable bowel syndrome, unspecified; M19.90 Unspecified osteoarthritis, unspecified site; M81.0 Age-related osteoporosis without current pathological fracture; Z79.899 Other long term (current) drug therapy; Z87.891 Personal history of nicotine dependence; Z86.73 Personal history of transient ischemic attack (TIA), and cerebral infarction without residual deficits; Z90.710 Acquired absence of both cervix and uterus; Z90.89 Acquired absence of other organs
CPT/HCPCS: 74019; 74177; 80053; 81000; 83690; 83735; 85025; 86141; 87077; 87088; 87186; 96361; 96374; 96375; 96376; 99284; G0378; 36415

== ENCOUNTER 2021-12-10 19:15 | Emergency (ER) | payer MEDICARE ==
[~2021-12-10] VITALS: Ht 167.7 cm; Wt 63.0 kg
[2021-12-10] MEDS ORDERED: LACTATED RINGERS 1,000 ML IV ONE (20:30)
[2021-12-10 20:38] LABS: BASOPHILS % (AUTO) 0 % (0-10); EOSINOPHILS # (AUTO) 0.1 10^3/uL (0.0-0.3); EOSINOPHILS % (AUTO) 1 % (0-10); HEMATOCRIT 40 % (35-52); HEMOGLOBIN 13.7 g/dL (11.5-16.0); LYMPHOCYTES # (AUTO) 2.1 10^3/uL (1.0-4.0); LYMPHOCYTES % (AUTO) 30 % (12-44); MEAN CORPUSCULAR HEMOGLOBIN 34 pg (25-34); MEAN CORPUSCULAR HGB CONC 35 g/dL (32-36); MEAN CORPUSCULAR VOLUME 99 fL (80-99); MEAN PLATELET VOLUME 8.5 fL (9.0-12.2); MONOCYTES # (AUTO) 0.3 10^3/uL (0.0-1.0); MONOCYTES % (AUTO) 4 % (0-12); NEUTROPHILS # (AUTO) 4.3 10^3/uL (1.8-7.8); NEUTROPHILS % (AUTO) 64 % (42-75); PLATELET COUNT 229 10^3/uL (130-400); WHITE BLOOD COUNT 6.8 10^3/uL (4.3-11.0)
[2021-12-10] MEDS ORDERED: PROCHLORPERAZINE 10 MG/2ML INJ (COMPAZINE) IV ONE (20:45)
[2021-12-10] MEDS ORDERED: diphenhydrAMINE 50 MG/ML INJ (BENADRYL) IVP ONE (20:45)
--- NOTE | 2021-12-10 20:46 | ED General ---
General Chief Complaint: Abdominal/GI Problems Stated Complaint: VOMITING - HEADACHE - DIARRHEA Nursing Triage Note: PT AMBULATORY TO ROOM. PT STATES SHE BEGAN VOMITING AT 2AM THIS MORNING IN ADDITION TO HER MIGRAINE. PT HAS HAD NAUSEA AND VOMITING AND DIARRHEA SINCE PER PT REPORT. PT STATES SHE WAS SEEN AT URGENT CARE TODAY AND WAS GIVEN ZOFRAN. PT STATES SHE HAS ALSO TAKEN SEVERAL TABS OF ZOFRAN THROUGHOUT THE DAY TODAY AT HOME Source of Information: Patient History of Present Illness Date Seen by Provider: Dec 10, 2021 Time Seen by Provider: 20:27 Initial Comments PT ARRIVES VIA POV FROM HOME C/O HEADACHE, NAUSEA/VOMITING/DIARRHEA SINCE 0200 THIS MORNING STATES "IT STARTED WITH MY MIGRAINE AND IT GOT WORSE" STATES HER HEADACHE IS IN THE BACK OF HER HEAD WHICH IS TYPICAL OF HER NORMAL MIGRAINES. STATES SHE HAS NOT REALLY EATEN ANY THING FOR THE LAST 2 DAYS "BECAUSE I COULD FEEL IT COMING ON" STATES SHE VOMITED X 1 VERY EARLY THIS MORNING AT 0200 AND HAS HAD DRY HEAVES ALL DAY SINCE THEN--NO ACTUAL VOMITING SINCE THEN STATES "I CAN'T KEEP MY MIGRAINE MEDICINE DOWN" STATES SHE HAS TAKEN HER HOME ZOFRAN ODT "ABOUT 8 OF THEM UNDER MY TONGUE TODAY" --NO RELIEF WENT TO [facility] THIS MORNING FOR THIS AND WAS GIVEN A SHOT OF ZOFRAN, NO RX'S GIVEN. COVID TEST WAS NEGATIVE, PER PT NO OTHER TESTS WERE DONE NO COUGH OR URI SYMPTOM NO FEVER NO SHORTNESS OF BREATH NO CHEST PAIN NO ABDOMINAL PAIN PT IS URINATING NORMALLY NO VISION CHANGES NO PARESTHESIAS OR MOTOR DEFICITS ALSO HAS CHRONIC NECK AND BACK PAIN AND HAS AN APPOINTMENT THIS FRIDAY WITH DR. 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 SALES Allergies and Home Medications Allergies Coded Allergies: ciprofloxacin (Verified Allergy, Intermediate, 09/16/13) NSAIDS (Non-Steroidal Anti-Inflamma (Verified Allergy, Unknown, 12/11/21) Patient Home Medication List Home Medication List Reviewed: Yes Hydrocodone/Acetaminophen (Hydrocodon-Acetamin 7.5-325/15) 1 Each Tablet, 1 EACH PO, (Reported) Entered as Reported by: DREW BLACK on 09/16/131835 Meclizine HCl (Meclizine HCl) 25 Mg Tablet, 50 MG PO Q6 PRN for DIZZINESS Prescribed by: RADHA PATEL on 06/01/202112 Methotrexate Sodium/Pf (Methotrexate 1 Gm/40 Ml Vial) 25 Mg/1 Ml Vial, 25 MG IJ, (Reported) Entered as Reported by: DREW BLACK on 09/16/131835 Nitrofurantoin Monohyd/M-Cryst (Macrobid 100 mg Capsule) 100 Mg Capsule, 1 TAB PO BID Prescribed by: RADHA PATEL on 06/01/202116 Ondansetron (Ondansetron Odt) 4 Mg Tab.rapdis, 4 MG PO Q4H Prescribed by: RADHA PATEL on 06/01/202112 Prochlorperazine Maleate (Compazine) 25 Mg Supp.rect, 25 MG RC Q6H Prescribed by: RADHA PATEL on 06/01/202112 Rosuvastatin Calcium (Crestor) 10 Mg Tablet, 10 MG PO DAILY, (Reported) Entered as Reported by: DREW BLACK on 09/16/131835 Trazodone HCl (Trazodone HCl) 50 Mg Tablet, 50 MG PO HS, (Reported) Entered as Reported by: NOLAN CARTWRIGHT on 07/15/16 0934 [Sulfasalazine Ec] , 500 MG PO SURJIT, (Reported) Entered as Reported by: DREW BLACK on 09/16/131835 Review of Systems Review of Systems Constitutional: no symptoms reported; No dizziness, No fever EENTM: no symptoms reported Respiratory: no symptoms reported Cardiovascular: no symptoms reported Gastrointestinal: see HPI; No abdominal pain; diarrhea, loss of appetite, nausea, vomiting Genitourinary: no symptoms reported Musculoskeletal: see HPI (CHRONIC NECK AND BACK PAIN--UNCHANGED) Skin: no symptoms reported Psychiatric/Neurological: See HPI, Anxiety, Headache; Denies Numbness, Denies Seizure, Denies Tingling, Denies Weakness Hematologic/Lymphatic: No Symptoms Reported Immunological/Allergic: no symptoms reported Past Facfogl-Olcscb-Rzepjk Hx Patient Social History Tobacco Use?: Yes Tobacco type used: Cigarettes Smoking Status: Former Smoker Substance use?: No Alcohol Use?: Yes Alcohol Frequency: Once in a while Immunizations Up To Date Tetanus Booster (TDap): Unknown Seasonal Allergies Seasonal Allergies: Yes Past Medical History Surgeries: Yes (SEE BELOW, ) Bladder Surgery, Gallbladder, Hysterectomy, Oophorectomy, Orthopedic Respiratory: No Currently Using CPAP: No Currently Using BIPAP: No Cardiac: Yes High Cholesterol Neurological: Yes Headaches /Migraines, TIA, Vertigo Reproductive Disorders: No Female Reproductive Disorders: Denies [employer] History: Hysterectomy Sexually Transmitted Disease: No HIV/AIDS: No Genitourinary: No Gastrointestinal: Yes (LAST COLONOSCOPY 2015;CHRONIC NAUSEA) Gastroesophageal Reflux, Chronic Constipation, Chronic Diarrhea, Polyps, Irritable Bowel Musculoskeletal: Yes (PSORIATIC ARTHRITIS;BILAT KNEE SCOPES;R THUMB TRIGGER FINGER;CHR. NECK PN) Degenerate Disk Disease, Osteoporosis, Arthritis, Chronic Back Pain Endocrine: No HEENT: Yes Cataract Loss of Vision: Bilateral Hearing Impairment: Denies Cancer: No Psychosocial: No Integumentary: Yes (PSORIATIC ARTHRITIS--METHOTREXATE WEEKLY INJECTIONS) Psoriasis Blood Disorders: No Adverse Reaction/Blood Tranf: No (N/A) Family Medical History SOCIAL HISTORY: -RARE ETOH -NO DRUG USE -QUIT SMOKING 2003 PSH: -COLONOSCOPIES/POLYPECTOMIES--LAST ONE 2015 -TONSILLECTOMY -HYSTERECTOMY/BILATERAL SALPINGO-OOPHORECTOMY -CHOLECYSTECTOMY -FACIAL SURGERY -BILATERAL KNEE SCOPES -RIGHT THUMB TRIGGER FINGER -BLADDER SUSPENSION Physical Exam Vital Signs Vital Signs - First Documented 12/10/21 20:15 Temp 36.6 Pulse 87 Resp 26 B/P (MAP) 141/92 (108) Pulse Ox 97 Capillary Refill : Height, Weight, BMI Height: 5'5.00" Weight: 160lbs. 0.0oz. [id number]; 22.00 BMI Method: General Appearance: Anxious, Other (VERY ANXIOUS) HEENT: Normal ENT Inspection Neck: Normal Inspection Respiratory: Normal Breath Sounds, No Accessory Muscle Use, No Respiratory Distress Cardiovascular: Regular Rate, Rhythm Gastrointestinal: Non Tender, Soft Extremity: Normal Capillary Refill, Normal Inspection Neurologic/Psychiatric: Alert, Oriented x3, No Motor/Sensory Deficits, core cleaner II- XII Norm as Tested Skin: Normal Color, Warm/Dry Progress/Results/Core Measures Suspected Sepsis SIRS Temperature: Pulse: 87 Respiratory Rate: 26 Laboratory Tests 12/10/21 20:30: White Blood Count 6.8 Blood Pressure 141 /92 Mean: 108 Laboratory Tests 12/10/21 20:30: Creatinine 0.73, Platelet Count 229, Total Bilirubin 0.8 Results/Orders Lab Results Laboratory Tests Test 12/10/21 20:30 12/10/21 20:32 Range/Units White Blood Count 6.8 4.3-11.0 10^3/uL Red Blood Count 4.00 3.80-5.11 10^6/uL Hemoglobin 13.7 11.5-16.0 g/dL Hematocrit 40 35-52 % Mean Corpuscular Volume 99 80-99 fL Mean Corpuscular Hemoglobin 34 25-34 pg Mean Corpuscular Hemoglobin Concent 35 32-36 g/dL Red Cell Distribution Width 12.8 10.0-14.5 % Platelet Count 229 130-400 10^3/uL Mean Platelet Volume 8.5 L 9.0-12.2 fL Immature Granulocyte % (Auto) 0 % Neutrophils (%) (Auto) 64 42-75 % Lymphocytes (%) (Auto) 30 12-44 % Monocytes (%) (Auto) 4 0-12 % Eosinophils (%) (Auto) 1 0-10 % Basophils (%) (Auto) 0 0-10 % Neutrophils # (Auto) 4.3 1.8-7.8 10^3/uL Lymphocytes # (Auto) 2.1 1.0-4.0 10^3/uL Monocytes # (Auto) 0.3 0.0-1.0 10^3/uL Eosinophils # (Auto) 0.1 0.0-0.3 10^3/uL Basophils # (Auto) 0.0 0.0-0.1 10^3/uL Immature Granulocyte # (Auto) 0.0 0.0-0.1 10^3/uL Erythrocyte Sedimentation Rate 16 0-30 MM/HR Sodium Level 130 L 135-145 MMOL/L Potassium Level 3.6 3.6-5.0 MMOL/L Chloride Level 97 L 98-107 MMOL/L Carbon Dioxide Level 22 21-32 MMOL/L Anion Gap 11 5-14 MMOL/L Blood Urea Nitrogen 5 L 7-18 MG/DL Creatinine 0.73 0.60-1.30 MG/DL Estimat Glomerular Filtration Rate 85 BUN/Creatinine Ratio 7 Glucose Level 114 H 70-105 MG/DL Calcium Level 9.9 8.5-10.1 MG/DL Corrected Calcium 9.9 8.5-10.1 MG/DL Total Bilirubin 0.8 0.1-1.0 MG/DL Aspartate Amino Transf (AST/SGOT) 22 5-34 U/L Alanine Aminotransferase (ALT/SGPT) 22 0-55 U/L Alkaline Phosphatase 62 40-136 U/L C-Reactive Protein High Sensitivity 0.70 H 0.00-0.50 MG/DL Total Protein 6.7 6.4-8.2 GM/DL Albumin 4.0 3.2-4.5 GM/DL Procalcitonin 0.03 <0.10 NG/ML Influenza Type A (RT-PCR) Not Detected Not Detecte Influenza Type B (RT-PCR) Not Detected Not Detecte SARS-CoV-2 RNA (RT-PCR) Not Detected Not Detecte My Orders Orders - RADHA PATEL DO Cbc With Automated Diff (12/10/21 20:26) Comprehensive Metabolic Panel (12/10/21 20:) Procalcitonin (Pct) (12/10/21 20:26) Hs C Reactive Protein (12/10/21 20:26) Erythrocyte Sedimentation Rate (12/10/21 20:26) Ekg Tracing (12/10/21 20:26) Chest 1 View, Ap/Pa Only (12/10/21 20:26) Covid 19 Inhouse Test (12/10/21 20:26) Influenza A And B By Pcr (12/10/21 20:26) Isolation Central Supply Req (12/10/21 20:26) Ed Iv/Invasive Line Start (12/10/21 20:27) Lactated Ringers (Lr 1000 Ml Iv Solution (12/10/21 20:30) Prochlorperazine Injection (Compazine In (12/10/21 20:45) Diphenhydramine Injection (Benadryl Inje (12/10/21 20:45) Dexamethasone Injection (Decadron Injec (12/10/21 20:45) Medications Given in ED Current Medications Medications Dose Ordered Sig/Lauren Route Start Time Stop Time Status Last Admin Dose Admin Dexamethasone Sodium Phosphate 10 mg ONCE ONCE IV 12/10/21 20:45 12/10/21 20:46 DC 12/10/21 21:00 10 MG Diphenhydramine HCl 25 mg ONCE ONCE IVP 12/10/21 20:45 12/10/21 20:46 DC 12/10/21 20:59 25 MG Lactated Ringer's 1,000 ml @ 0 mls/hr Q0M ONCE IV 12/10/21 20:30 12/10/21 20:31 DC 12/10/21 21:00 0 MLS/HR Prochlorperazine Edisylate 10 mg ONCE ONCE IV 12/10/21 20:45 12/10/21 20:46 DC 12/10/21 20:58 10 MG Vital Signs/I&O 12/10/21 12/10/21 20:15 21:40 Temp 36.6 Pulse 87 80 Resp 26 20 B/P (MAP) 141/92 (108) 140/84 Pulse Ox 97 94 12/11/21 00:00 Intake Total 1000 ml Balance 1000 ml Capillary Refill : Blood Pressure Mean: 108 Progress Note : Progress Note GIVEN IV FLUIDS, DECADRON, COMPAZINE AND BENADRYL 2129--PT STATES SHE IS FEELING MUCH BETTER AND NOW IS VERY ANXIOUS TO GO HOME NO VOMITING OR DIARRHEA DURING ER STAY ECG Initial ECG Impression Date: Dec 10, 2021 Initial ECG Impression Time: 20:34 Initial ECG Rate: 68 Initial ECG Rhythm: Normal Sinus Diagnostic Imaging Comments CXR--PER RADIOLOGIST REPORT AT 2117 Single AP view of the chest is obtained. There is no previous study for comparison. Overall heart size and pulmonary vascularity are within normal limits. There is air trapping in the upper lobes. Occasional calcified granulomas are seen in the left lung and hilum. Additional calcifications are seen in the right hilum and lung base. There is no pneumothorax or consolidation. IMPRESSION: Background emphysema without evidence of acute abnormality. Reviewed: Reviewed by Me Departure Impression Primary Impression: Migraine Additional Impression: Nausea & vomiting Disposition: 01 HOME, SELF-CARE Condition: Improved Departure-Patient Inst. Decision time for Depature: 21:30 Referrals: CLAUDIA SALES MD (PCP/Family) Primary Care Physician Patient Instructions: Migraines in Adults, Nausea and Vomiting, Adult (DC) Add. Discharge Instructions: HOME, REST LOTS OF CLEAR LIQUIDS TAKE YOUR REGULAR MEDICATIONS PRESCRIBED FOLLOW UP WITH DR. SALES TOMORROW IF NO BETTER, RETURN TO ER IF WORSE All discharge instructions reviewed with patient and/or family. Voiced understanding. RADHA PATEL DO Dec 10, 2021 20:46
[2021-12-10 20:48] LABS: POTASSIUM 3.6 MMOL/L (3.6-5.0)
[2021-12-10 20:49] LABS: CALCIUM 9.9 MG/DL (8.5-10.1)
[2021-12-10 20:51] LABS: TOTAL PROTEIN 6.7 GM/DL (6.4-8.2)
[2021-12-10 20:52] LABS: BILIRUBIN,TOTAL 0.8 MG/DL (0.1-1.0)
[2021-12-10 20:54] LABS: CREATININE SERUM 0.73 MG/DL (0.60-1.30)
[2021-12-10 21:02] LABS: ERYTHROCYTE SEDIMENTATION RATE 16 MM/HR (0-30)
--- NOTE | 2021-12-10 21:16 | Diagnostic Imaging Report ---
INDICATION: Emesis with nausea and diarrhea Single AP view of the chest is obtained. There is no previous study for comparison. Overall heart size and pulmonary vascularity are within normal limits. There is air trapping in the upper lobes. Occasional calcified granulomas are seen in the left lung and hilum. Additional calcifications are seen in the right hilum and lung base. There is no pneumothorax or consolidation. IMPRESSION: Background emphysema without evidence of acute abnormality. Dictated by: Dictated on workstation # [id number]
[2021-12-10 21:40] VITALS: BP 140/84
== END 2021-12-10 21:44 | disposition home or self-care (01) ==
LOC: EDUNIT# 19:15 → ER 19:17
DX: G43.909 Migraine, unspecified, not intractable, without status migrainosus (principal); Z87.891 Personal history of nicotine dependence; Z20.822 Contact with and (suspected) exposure to COVID-19
CPT/HCPCS: 36415; 71045; 80053; 84145; 85025; 85652; 86141; 87636; 93005